=== PATIENT | male | born 2000 | race Hispanic/Latino ===

== ENCOUNTER 2022-01-08 05:50 | Day surgery (SDC) | payer MEDICAID ==
[2022-01-06 11:54] LABS: BASOPHILS % (AUTO) 0.8 % (0.0-5.0); EOSINOPHILS % (AUTO) 9.2 % (0.0-8.0); HEMATOCRIT 49.2 % (42-54); LYMPHOCYTES % (AUTO) 31.5 % (21.0-51.0); MEAN CORPUSCULAR HEMOGLOBIN 28.5 pg (27.0-33.0); MEAN CORPUSCULAR HGB CONC 32.7 g/dL (32.0-36.0); MEAN CORPUSCULAR VOLUME 87.1 fL (80-100); MONOCYTES % (AUTO) 6.7 % (3.0-13.0); NEUTROPHILS % (AUTO) 51.2 % (40.0-77.0); PLATELET COUNT (AUTO) 217 K/uL (130-400); RED BLOOD CELL COUNT(AUTO) 5.65 MIL/uL (4.50-6.20); WHITE BLOOD COUNT (AUTO) 6.3 K/uL (4.8-10.8)
[2022-01-06 12:14] LABS: CREATININE 0.8 mg/dL (0.5-1.5); POTASSIUM 4.4 mmol/L (3.5-5.1)
[2022-01-06 12:39] LABS: PROTHROMBIN TIME 10.9 SEC (9.6-11.6)
[2022-01-06 12:40] LABS: PARTIAL THROMBOPLASTIN TIME 29.3 SEC (26.3-35.5)
[2022-01-07 09:44] VITALS: BP 142/84
[~2022-01-08] VITALS: Ht 172.7 cm; Wt 69.2 kg
[2022-01-08] VITALS (18 sets, daily range): BP systolic 120–137; BP diastolic 72–84
[~2022-01-08 05:50] MED LIST: CETI10TA57 PO; DEXTROSE 5% IVP SCH; FLUT16H NASAL; PROCAINAMIDE HCL IVP SCH; WATER IVP SCH
[2022-01-08] MEDS ORDERED: WATER IVP SCH (07:00)
[2022-01-08] MEDS ORDERED: PROCAINAMIDE HCL IVP SCH (07:00)
[2022-01-08] MEDS ORDERED: DEXTROSE 5% IVP SCH (07:00)
== END 2022-01-08 13:01 | disposition home or self-care (01) ==
LOC: DAH 05:50
PROVIDERS: ATTEND Internal Medicine Cardiovascular Disease
DX: R94.31 Abnormal electrocardiogram [ECG] [EKG] (principal); I45.10 Unspecified right bundle-branch block; I25.2 Old myocardial infarction; I10 Essential (primary) hypertension; Z79.899 Other long term (current) drug therapy; Z79.01 Long term (current) use of anticoagulants; Z53.8 Procedure and treatment not carried out for other reasons
CPT/HCPCS: 36415 ×2; 80048; 83735; 85025; 85610; 85730; 93005 ×5; A4215; A4216; A4221; A4222; A4223 ×3; A4606; A4663; J2690 ×2; J7060 ×2